=== PATIENT | male | born 1950 | race Caucasian/White ===

== ENCOUNTER 2021-03-18 18:46 | Inpatient (IN) | payer OTHER ==
[~2021-03-18] VITALS: Ht 175.3 cm; Wt 69.6 kg
[2021-03-18] MEDS ORDERED: BP MEDICATION (18:57)
--- NOTE | 2021-03-18 19:14 | NUR ---
received patient awake , able to follow command on the way out to ct scan
[2021-03-18] MEDS ORDERED: TDAP DIPH,PERTUSS,TET VAC/PF 0.5 ML DISP.SYRIN IM ONE ×2 (19:15→19:58)
--- NOTE | 2021-03-18 19:43 | NUR ---
Called Dr. Desai for ortho consult.
[2021-03-18] MEDS ORDERED: NEOMY/BACITRA/POLYMYXIN B OINT UD PACKET TP ONE ×2 (19:45→19:57)
[2021-03-18 19:52] LABS: BASOPHILS % (AUTO) 0.4 % (0.0-2.0); EOSINOPHILS % (AUTO) 0.1 % (0.0-7.0); HEMATOCRIT 47.3 % (36.7-47.1); HEMOGLOBIN 16.1 g/dL (12.5-16.3); LYMPHOCYTES # (AUTO) 1.1 K/uL (20.0-40.0); MEAN CORPUSCULAR HEMOGLOBIN 31.3 uug (23.8-33.4); MEAN CORPUSCULAR HGB CONC 34 g/dL (32.5-36.3); MEAN CORPUSCULAR VOLUME 91.7 fL (73.0-96.2); MONOCYTES # (AUTO) 0.7 K/uL (2.0-10.0); MONOCYTES % (AUTO) 5.4 % (0.0-11.0); NEUTROPHILS # (AUTO) 10.5 K/uL (1.8-8.9); NEUTROPHILS % (AUTO) 85.1 % (38.5-71.5); PLATELET COUNT (AUTO) 151 K/uL (152-348); RED BLOOD CELL COUNT(AUTO) 5.16 MIL/uL (4.06-5.63); WHITE BLOOD COUNT (AUTO) 12.3 K/uL (3.6-10.2)
[2021-03-18 19:58] LABS: CREATININE 1.2 mg/dL (0.6-1.3); POTASSIUM 4.1 mmol/L (3.5-5.1)
--- NOTE | 2021-03-18 20:00 | NUR ---
patient back from ct scan
[2021-03-18 20:05] LABS: BILIRUBIN,DIRECT 0.2 mg/dL (0.0-0.2); BILIRUBIN,TOTAL 0.6 mg/dL (0.2-1.0); TOTAL PROTEIN, SERUM 7.6 g/dL (6.4-8.2)
[2021-03-18] MEDS ORDERED: MORPHINE SULFATE 2 MG/1 ML DISP.SYRIN IV ONE (20:30)
[2021-03-18] MEDS ORDERED: MORPHINE SULFATE 2 MG/1 ML DISP.SYRIN ONE (20:32)
--- NOTE | 2021-03-18 20:37 | NUR ---
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
--- NOTE | 2021-03-18 21:00 | NUR ---
received call from lab negative for rapid covid
--- NOTE | 2021-03-18 21:20 | NUR ---
dr lara spoke to dr lauren serrano dr
--- NOTE | 2021-03-18 22:09 | NUR ---
Dr. Quach on panel call with Dr. Chris Youssef.
[2021-03-18] MEDS ORDERED: ACETAMINOPHEN 325 MG TABLET PO PRN (23:00)
[2021-03-18] MEDS ORDERED: ONDANSETRON 4 MG/2 ML VIAL IV PRN (23:00)
[2021-03-18] MEDS ORDERED: HYDROCODONE/APAP 5-325MG TABLET PO PRN (23:00)
[2021-03-18] MEDS ORDERED: MAGNESIUM HYDROXIDE 30 ML LIQUID UDC PO PRN (23:00)
[2021-03-18] MEDS ORDERED: Z GUARD REMEDY PASTE 57 GM TUBE TOP PRN (23:00)
--- NOTE | 2021-03-18 23:15 | NUR ---
Admitted a 70 male to [facility] with an admitting diagnosis of Acetabular fracture. Transferred pt to bed, repositioned comfortably. Head to toe assessment done. Pt is A&Ox4, verbally responsive, able to make needs known. Pt complained of pain level of 7/10 on LLE, no s/s of respiratory distress on room air. IV access on R AC intact and patent. Belongings checked and placed at bedside. Safety measures in place, call light within reach, will continue to monitor.
[2021-03-18] MEDS: ENOXAPARIN SODIUM 40 MG/0.4 ML DISP.SYRIN SQ SCH (23:47)
[2021-03-19] VITALS: BP 121/63
--- NOTE | 2021-03-19 00:01 | NUR ---
report given to oliva , history , dx , medications given and all belongings sent , money in an envelpe along with keys and lancet kniwfe given to supervisor scouring pads in an envelope for safe deposit
[2021-03-19] MEDS: MORPHINE SULFATE 2 MG/1 ML DISP.SYRIN IV PRN ×4 (00:40→20:53)
[2021-03-19 04:00] VITALS: BP 117/70
[2021-03-19 05:45] LABS: BASOPHILS % (AUTO) 0.3 % (0.0-2.0); EOSINOPHILS % (AUTO) 0.2 % (0.0-7.0); HEMATOCRIT 45.9 % (36.7-47.1); HEMOGLOBIN 15.3 g/dL (12.5-16.3); LYMPHOCYTES # (AUTO) 1.9 K/uL (20.0-40.0); LYMPHOCYTES % (AUTO) 19.2 % (20.5-51.5); MEAN CORPUSCULAR HEMOGLOBIN 30.7 uug (23.8-33.4); MEAN CORPUSCULAR HGB CONC 33 g/dL (32.5-36.3); MONOCYTES # (AUTO) 0.7 K/uL (2.0-10.0); MONOCYTES % (AUTO) 7.2 % (0.0-11.0); NEUTROPHILS # (AUTO) 7.2 K/uL (1.8-8.9); NEUTROPHILS % (AUTO) 73.1 % (38.5-71.5); PLATELET COUNT (AUTO) 145 K/uL (152-348); RED BLOOD CELL COUNT(AUTO) 4.99 MIL/uL (4.06-5.63); WHITE BLOOD COUNT (AUTO) 9.9 K/uL (3.6-10.2)
[2021-03-19 06:05] LABS: MAGNESIUM 1.8 mg/dL (1.8-2.4); PHOSPHOROUS 2.5 mg/dL (2.5-4.9)
[2021-03-19 06:11] LABS: THYROID STIMULATING HORMONE 2.064 mIU/mL (0.358-3.740)
[2021-03-19] MEDS: PANTOPRAZOLE SODIUM 40 MG TABLET.DR PO SCH ×2 (06:22→08:07)
--- NOTE | 2021-03-19 06:36 | NUR ---
Slept intermittently through the night, tolerated medications well. no s/s of acute distress. IV access intact and patent. DVT pumps on. Safety measures in place, call light within reach, all needs attended and met.
[2021-03-19] MEDS: HYDROCODONE/APAP 10-325 MG TABLET PO PRN ×2 (08:08→17:27)
--- NOTE | 2021-03-19 08:49 | NUR ---
0800 first met, c/o left hip pain, 101/0, first NORCO 10/325mg po given 0840 checked back with him, " no relief" in light of PT eval, 2mg ivp MSO4 given right now denied any allergy to the morphine.
[2021-03-19 10:09] VITALS: BP 116/67
[2021-03-19 11:30] VITALS: BP 121/58
--- NOTE | 2021-03-19 14:20 | NUR ---
PT eval done, patient able to stand up , but not able to ambulate yet, secondary to non weight bearing at this time, on the Left leg. on hourly round, complained of pain, still , on Left leg, 2mg ivp morphine given for pain seen by surgeon, no surgery needed this time, per his surgeon.
[2021-03-19 14:47] LABS: *BILIRUBIN,URIN NEGATIVE (NEGATIVE); *BLOOD, URINE NEGATIVE (NEGATIVE); *CLARITY,URINE CLEAR (CLEAR); *COLOR,URINE YELLOW (YELLOW); *KETONES,URINE NEGATIVE (NEGATIVE); *UROBILINOGEN,URINE 0.2 E.U./dl (NORMAL); LEUKOCYTE ESTERASE ,URINE NEGATIVE (NEGATIVE); NITRITE, URINE NEGATIVE (NEGATIVE); PH,URINE 5.5 (5.0-8.0); UGLUCOSE NEGATIVE (NEGATIVE)
[2021-03-19 15:31] VITALS: BP 99/62
--- NOTE | 2021-03-19 17:27 | NUR ---
hourly round, complained of pain on L groin, and leg. " when attempted to turn him, screaming. One po Hampton 10/325mg given .
--- NOTE | 2021-03-19 19:30 | NUR ---
Received pt in bed, awake and verbally responsive, able to make needs known. No s/s of respiratory distress on room air. Denies any pain or discomfort at this time. Safety measures in place, call light within reach, will continue to monitor.
[2021-03-19 20:05] VITALS: BP 125/64
[2021-03-19] MEDS: ENOXAPARIN SODIUM 40 MG/0.4 ML DISP.SYRIN SQ SCH (20:50)
[2021-03-20 04:00] VITALS: BP 115/72
[2021-03-20] MEDS: MORPHINE SULFATE 2 MG/1 ML DISP.SYRIN IV PRN ×3 (04:16→21:01)
[2021-03-20 06:04] LABS: BASOPHILS % (AUTO) 0.5 % (0.0-2.0); EOSINOPHILS # (AUTO) 0.1 K/uL (0.0-0.7); EOSINOPHILS % (AUTO) 2.2 % (0.0-7.0); HEMATOCRIT 43.3 % (36.7-47.1); HEMOGLOBIN 14.7 g/dL (12.5-16.3); LYMPHOCYTES # (AUTO) 1.4 K/uL (20.0-40.0); MEAN CORPUSCULAR HEMOGLOBIN 31.7 uug (23.8-33.4); MEAN CORPUSCULAR HGB CONC 34 g/dL (32.5-36.3); MEAN CORPUSCULAR VOLUME 93.1 fL (73.0-96.2); MONOCYTES # (AUTO) 0.5 K/uL (2.0-10.0); MONOCYTES % (AUTO) 7.7 % (0.0-11.0); NEUTROPHILS # (AUTO) 4.7 K/uL (1.8-8.9); NEUTROPHILS % (AUTO) 69.6 % (38.5-71.5); PLATELET COUNT (AUTO) 127 K/uL (152-348); RED BLOOD CELL COUNT(AUTO) 4.65 MIL/uL (4.06-5.63); WHITE BLOOD COUNT (AUTO) 6.8 K/uL (3.6-10.2)
[2021-03-20 06:21] LABS: CREATININE 1.2 mg/dL (0.6-1.3); MAGNESIUM 2.2 mg/dL (1.8-2.4); PHOSPHOROUS 2.4 mg/dL (2.5-4.9); POTASSIUM 4.3 mmol/L (3.5-5.1)
--- NOTE | 2021-03-20 06:55 | NUR ---
Pt slept through the night, no signs of acute distress. Pain medication administered as ordered. Tolerated medications well. Bed locked and in low position. side rails up. All needs attended and met.
--- NOTE | 2021-03-20 07:30 | NUR ---
Received patient in bed awake, alert and oriented times 2-3 but forgetful. No sign of distress noted at this time. Patient is on room air saturating well. Safety precautions are in place. Will continue to monitor.
[2021-03-20 11:52] VITALS: BP 133/66
[2021-03-20] MEDS ORDERED: NEUTRA PHOS PACKET PO ONE (13:15)
[2021-03-20 15:30] VITALS: BP 150/61
--- NOTE | 2021-03-20 18:57 | NUR ---
Patient is left resting in bed no sign of distress noted. Gave medication as ordered. Safety precautions are in place. Will endorse to the oncoming shift.
--- NOTE | 2021-03-20 19:30 | NUR ---
Received pt in bed, A&Ox3, awake and verbally responsive, forgetful but able to make needs known. IV access on R AC intact and patent. Bed alarm on, bed locked and in low position, side rails up. Call light within reach. will continue to monitor.
[2021-03-20 20:09] VITALS: BP 110/70
[2021-03-20] MEDS: ENOXAPARIN SODIUM 40 MG/0.4 ML DISP.SYRIN SQ SCH (20:53)
--- NOTE | 2021-03-21 00:39 | NUR ---
Pt has a sudden change in condition. Pt verbalized " I needed to go out, meet my friends, eat breakfast. Is there a bear out there? I need to get out of here." Reorientation done. Pt got agitated and aggressive, trying to get out of bed, cursing and hitting staff. Notified Elkin Llanes NP regarding pt's change of condition and received an order of Ativan 1mg Q4HPRN for severe agitation. will continue to monitor.
[2021-03-21] MEDS ORDERED: LORAZEPAM 2 MG/1 ML VIAL IV PRN (00:45)
[2021-03-21 04:09] VITALS: BP 149/90
[2021-03-21] MEDS: PANTOPRAZOLE SODIUM 40 MG TABLET.DR PO SCH (06:21)
[2021-03-21 06:38] LABS: BASOPHILS # (AUTO) 0.1 K/uL (0.0-8.0); BASOPHILS % (AUTO) 0.7 % (0.0-2.0); EOSINOPHILS # (AUTO) 0.1 K/uL (0.0-0.7); EOSINOPHILS % (AUTO) 0.8 % (0.0-7.0); HEMATOCRIT 43.9 % (36.7-47.1); HEMOGLOBIN 14.9 g/dL (12.5-16.3); LYMPHOCYTES # (AUTO) 1.4 K/uL (20.0-40.0); LYMPHOCYTES % (AUTO) 17.8 % (20.5-51.5); MEAN CORPUSCULAR HEMOGLOBIN 31.3 uug (23.8-33.4); MEAN CORPUSCULAR HGB CONC 34 g/dL (32.5-36.3); MEAN CORPUSCULAR VOLUME 92.3 fL (73.0-96.2); MONOCYTES # (AUTO) 0.7 K/uL (2.0-10.0); MONOCYTES % (AUTO) 8.9 % (0.0-11.0); NEUTROPHILS # (AUTO) 5.8 K/uL (1.8-8.9); NEUTROPHILS % (AUTO) 71.8 % (38.5-71.5); PLATELET COUNT (AUTO) 122 K/uL (152-348); RED BLOOD CELL COUNT(AUTO) 4.76 MIL/uL (4.06-5.63); WHITE BLOOD COUNT (AUTO) 8.1 K/uL (3.6-10.2)
--- NOTE | 2021-03-21 06:45 | NUR ---
Pt is calmer this morning, cooperative with care, tolerated medications well. Bed locked and in low position. Bed alarm on, side rails up. IV access intact and patent. OFF of restraints for now. Will endorse to incoming nurse.
[2021-03-21 06:54] LABS: CREATININE 1.2 mg/dL (0.6-1.3); PHOSPHOROUS 2.9 mg/dL (2.5-4.9); POTASSIUM 4.7 mmol/L (3.5-5.1)
[2021-03-21] MEDS ORDERED: KETOROLAC TROMETHAMINE 15 MG INJ IVP PRN (09:45)
[2021-03-21 11:46] VITALS: BP 137/70
[2021-03-21 14:28] VITALS: BP 119/66
--- NOTE | 2021-03-21 19:30 | NUR ---
RECEIVED PT AWAKE, ALERT AND ORIENTEDX3. PT IN NO ACUTE DISTRESS. IV INTACT. PT HARD OF HEARING. SAFETY AND COMFORT PROVIDED. WILL CONTINUE TO MONITOR.
[2021-03-21] MEDS: ACETAMINOPHEN ES 500 MG TABLET PO PRN (19:51)
[2021-03-21 20:00] VITALS: BP 129/70
--- NOTE | 2021-03-21 20:00 | NUR ---
KARAN TIMBO [phone] CALLED RN TO ASK IF PT IS DOING PHYSICAL THERAPY. TOLD KARAN SHE IS NOT ON THE PERSON TO NOTIFY TO JUST TALKED WITH THE PT. SHE TOLD ME TO PUT HER DAD VIJI IZQUIERDO [phone] FOR PERSON TO NOTIFY FOR THE PT.
[2021-03-21] MEDS: ENOXAPARIN SODIUM 40 MG/0.4 ML DISP.SYRIN SQ SCH (20:16)
[2021-03-22 04:00] VITALS: BP 145/72
[2021-03-22] MEDS: ACETAMINOPHEN ES 500 MG TABLET PO PRN (04:17)
[2021-03-22] MEDS: PANTOPRAZOLE SODIUM 40 MG TABLET.DR PO SCH (06:12)
--- NOTE | 2021-03-22 06:18 | NUR ---
PT SLEPT INTERMITTENTLY. PT IN NO ACUTE DISTRESS. PRESCRIBED MEDICATION GIVEN AND PT TOLERATED IT WELL. SAFETY AND COMFORT PROVIDED.TYLENOL ES 1000MG FOR PAIN AT 1951H AND 0417H. . ALL NEEDS ARE MET. VITAL SIGNS WITHIN NORMAL LIMIT. WILL ENDORSE TO INCOMING NURSE FOR CONTINUITY OF CARE.
[2021-03-22 06:25] LABS: BASOPHILS # (AUTO) 0.1 K/uL (0.0-8.0); BASOPHILS % (AUTO) 0.7 % (0.0-2.0); EOSINOPHILS # (AUTO) 0.2 K/uL (0.0-0.7); EOSINOPHILS % (AUTO) 2.8 % (0.0-7.0); HEMATOCRIT 45.5 % (36.7-47.1); HEMOGLOBIN 15.2 g/dL (12.5-16.3); LYMPHOCYTES # (AUTO) 1.4 K/uL (20.0-40.0); LYMPHOCYTES % (AUTO) 17.9 % (20.5-51.5); MEAN CORPUSCULAR HEMOGLOBIN 31.3 uug (23.8-33.4); MEAN CORPUSCULAR HGB CONC 34 g/dL (32.5-36.3); MEAN CORPUSCULAR VOLUME 93.4 fL (73.0-96.2); MONOCYTES # (AUTO) 0.9 K/uL (2.0-10.0); MONOCYTES % (AUTO) 12.2 % (0.0-11.0); NEUTROPHILS # (AUTO) 5.1 K/uL (1.8-8.9); NEUTROPHILS % (AUTO) 66.4 % (38.5-71.5); PLATELET COUNT (AUTO) 139 K/uL (152-348); RED BLOOD CELL COUNT(AUTO) 4.87 MIL/uL (4.06-5.63); WHITE BLOOD COUNT (AUTO) 7.6 K/uL (3.6-10.2)
[2021-03-22 06:56] LABS: BILIRUBIN,TOTAL 0.8 mg/dL (0.2-1.0); MAGNESIUM 2.2 mg/dL (1.8-2.4); PHOSPHOROUS 2.6 mg/dL (2.5-4.9); POTASSIUM 4.1 mmol/L (3.5-5.1); TOTAL PROTEIN, SERUM 6.7 g/dL (6.4-8.2)
--- NOTE | 2021-03-22 07:30 | NUR ---
Received patient in bed awake, alert and oriented times 2-3 but forgetful. No sign of distress noted at this time. Patient is on room air saturating well. Patient has a right sided forehead abrasion and bruising on the right hand inner and outer forearm. Safety precautions are in place. Will continue to monitor.
[2021-03-22 11:59] VITALS: BP 144/69
--- NOTE | 2021-03-22 14:09 | NUR ---
Asphalt Patcher Consultation: 12:00pm: Asphalt Patcher consultation requested. Patient is a 70 year old male, who was admitted to the hospital on 03/18/21 due to left hip fracture s/p fall at home. This CUTTER GRINDER met with the patient in his hospital room. Patient's nurse Kathy was also present during this interview. Patient is alert, oriented x 3-4. Patient was aware of his name, location, reason for hospitalization being a hip fracture due to a fall, and patient knew that yesterday was March 21. Patient stated the year was 2019, but when this CUTTER GRINDER stated that the year was 2020, patient stated "oh yes, I was off by a year". Patient reports being independent with his basic ADL's, and using a walker or a cane for ambulation. Patient lives alone. Patient reports he has no children, although per nursing report, one of patient's visitors stated that patient has a son from whom he is estranged. Patient stated that he has a few good friends who help him by taking him to the grocery store and to doctor's appointments. Patient stated his PCP is Dr. Naila Pérez in [place], . Patient provided the names of the following friends: Leland Echavarria, ; [place] [phone]; and Shoshana Torres, . Patient stated he does not have a healthcare directive, nor a legal canvas products sales representative. Discharge plans discussed, and patient expressed being receptive to going to a SNF for recovery and physical therapy. Patient expressed understanding that he cannot go home right away in his current condition. This CUTTER GRINDER stated that case management would be working with patient's insurance to identify contracted SNF's and would let the patient know. Patient expressed understanding and agreement. At this time, there are no further SS interventions that are necessary, however this CUTTER GRINDER will remain available to the patient, as needed.
--- NOTE | 2021-03-22 15:00 | NUR ---
Patient requested to give all his valuables to friend Yovany Hassan including money, keys and wallet. Called group social worker to evaluate patient's orientation. Patient gave all items over to friend. Will continue to monitor.
[2021-03-22 16:00] VITALS: BP 151/71
[2021-03-22] MEDS ORDERED: ENSURE ENLIVE (VAN) 240 ML LIQUID PO SCH (17:00)
--- NOTE | 2021-03-22 17:31 | NUR ---
Patient discharged to senior care facility. All belongings and paperwork sent with ambulance. Discharge instructions done with patient. Report call in to [facility] to RN Lanette. All medications given as ordered. IV and ID band removed. Belongings list completed and copy given to patient. Pictures of skin done and placed in chart.
== END 2021-03-22 17:50 | DRG 535 ==
LOC: ER 18:46 → TELE3 23:03 → MEDSURG3 23:30
PROVIDERS: ADMIT Hospitalist; ATTEND Nurse Practitioner Acute Care
DX: S32.492A Other specified fracture of left acetabulum, initial encounter for closed fracture (principal); G92 Toxic encephalopathy; S32.592A Other specified fracture of left pubis, initial encounter for closed fracture; E87.1 Hypo-osmolality and hyponatremia; Y92.019 Unspecified place in single-family (private) house as the place of occurrence of the external cause; Z88.5 Allergy status to narcotic agent; Z88.6 Allergy status to analgesic agent; I25.10 Atherosclerotic heart disease of native coronary artery without angina pectoris; M85.80 Other specified disorders of bone density and structure, unspecified site; W01.0XXA Fall on same level from slipping, tripping and stumbling without subsequent striking against object, initial encounter; M19.90 Unspecified osteoarthritis, unspecified site; I10 Essential (primary) hypertension; I48.91 Unspecified atrial fibrillation; F19.959 Other psychoactive substance use, unspecified with psychoactive substance-induced psychotic disorder, unspecified; T40.2X5A Adverse effect of other opioids, initial encounter; Y92.89 Other specified places as the place of occurrence of the external cause; Z20.822 Contact with and (suspected) exposure to COVID-19; Z79.01 Long term (current) use of anticoagulants; Z95.5 Presence of coronary angioplasty implant and graft; S09.90XA Unspecified injury of head, initial encounter
CPT/HCPCS: 36415; 70030-TC; 70450; 71045; 72125; 72192; 83735; 84100; 84443; 85025; 85730; 90715; 93005; A4663; A9150; G0378; J1650; J2060; J2270; J7030